=== PATIENT | male | born 1995 | race Caucasian/White ===

== ENCOUNTER 2016-08-02 14:35 | Emergency (ER) | payer BC ==
[2016-08-02 15:31] VITALS: BP 106/53
[2016-08-02] MEDS ORDERED: Ibuprofen TAB* 600 MG PO ONE (15:52)
--- NOTE | 2016-08-02 15:53 | UC ---
UC General HPI - HPI Summary HPI Summary: fever sore throat, vomiting and headahce, tolerating fluids ok. for 2 days - History of Current Complaint Chief Complaint: UCGeneralIllness Stated Complaint: VOMITING/SORE THROAT/CHILLS/WEAKNESS Time Seen by Provider: 08/02/16 15:43 Hx Obtained From: Patient Onset/Duration: Sudden Onset, Lasting Days Timing: Constant Onset Severity: Moderate Current Severity: Severe Pain Intensity: 8 Associated Signs & Symptoms: Positive: Dizziness, Fever, Headache, Nausea, Vomiting - Allergy/Home Medications Allergies/Adverse Reactions: Allergies Allergy/AdvReac Type Severity Reaction Status Date / Time No Known Allergies Allergy Verified 08/02/16 15:31 PMH/Surg Hx/FS Hx/Imm Hx Previously Healthy: Yes - Surgical History Surgical History: None - Family History Known Family History: Positive: Other - skin CA - Social History Alcohol Use: Occasionally Substance Use Type: None Smoking Status (MU): Never Smoked Tobacco Review of Systems Constitutional: Fever, Chills, Fatigue Skin: Negative Eyes: Negative ENT: Sore Throat, Nasal Discharge Respiratory: Shortness Of Breath, Cough Cardiovascular: Negative Gastrointestinal: Vomiting Genitourinary: Negative Motor: Negative Neurovascular: Negative Musculoskeletal: Negative Neurological: Headache Psychological: Negative All Other Systems Reviewed And Are Negative: Yes Physical Exam Triage Information Reviewed: Yes Appearance: Well-Nourished, Ill-Appearing, Pain Distress Vital Signs: Initial Vital Signs Temp 102.6 F 08/02/16 15:27 Pulse 95 08/02/16 15:27 Resp 16 08/02/16 15:27 BP 106/53 08/02/16 15:27 Pulse Ox 97 08/02/16 15:27 Vital Signs Reviewed: Yes Eye Exam: Normal ENT Exam: Normal ENT: Positive: Pharyngeal erythema, Nasal congestion, Nasal drainage, TMs normal , Tonsillar swelling Dental Exam: Normal Neck exam: Normal Neck: Positive: Supple, Nontender, No Lymphadenopathy Respiratory Exam: Normal Respiratory: Positive: Chest non-tender, Lungs clear, Normal breath sounds Cardiovascular Exam: Normal Cardiovascular: Positive: RRR, No Murmur, Pulses Normal Abdominal Exam: Normal Abdomen Description: Positive: Nontender, No Organomegaly, Soft Bowel Sounds: Positive: Present Musculoskeletal Exam: Normal Musculoskeletal: Positive: Strength Intact, ROM Intact, No Edema Neurological Exam: Normal Psychological Exam: Normal Skin: Positive: Other - face is flushed, skin is clammy Course/Dx - Course Course Of Treatment: hx obtained, exam performed, med given ,flu swab obtained, positive. tamiflu prescribed. - Differential Dx - Multi-Symptom Provider Diagnoses: Influenza A. fever. vomiting Discharge - Discharge Plan Condition: Stable Disposition: HOME Patient Education Materials: Influenza (ED) Forms: *School Release Additional Instructions: Take the medication as prescribed. Continue to use ibuprofen and tylenol for pain and fever. DO not return to class while you have a fever or are vomiting. Follow up with any increase in symptoms
== END 2016-08-02 16:21 | disposition home or self-care (01) ==
LOC: UCCORT 14:35
DX: J09.X2 Influenza due to identified novel influenza A virus with other respiratory manifestations (principal); R50.9 Fever, unspecified; R11.10 Vomiting, unspecified
CPT/HCPCS: 87502; 99212; A9270-GY; G0463

== ENCOUNTER 2018-02-27 09:32 | Emergency (ER) | payer BC ==
[2018-02-27 09:43] VITALS: BP 112/64
[2018-02-27] MEDS ORDERED: Dexamethasone IV* 4 MG/ML 1 ML (4 MG) IM ONE (09:52)
--- NOTE | 2018-02-27 09:52 | UC ---
Skin Complaint HPI - HPI Summary HPI Summary: This patient is a 22 year old male [place] [facility] chief complaint of rash since yesterday. The rash is located on his arms and legs. Patient denies the rash occurring on his trunk. The pain is described as a hive-like rash, lot of itching and burning. The pain is rated 0/10 in severity. Symptoms aggravated by nothing. The patient treated the sx with Benadryl yesterday to mild relief. Patient states that that this rash is not unfamiliar to him and gets this rash nearly annually. He states that he normally get a prednisone shot for it and states that it is probably poison sumac. Patient denies fever, chills. Denies any new soap, detergent , cosmetics, food or a possible exposure. Denies any fever, chills, cough chest pain or shortness of breath . No diaphoresis. Denies any abdominal pain , nausea or vomiting , diarrhea or constipation. - History of Current Complaint Chief Complaint: UCSkin Time Seen by Provider: 02/27/18 09:34 Stated Complaint: ALLERGIC REACTION Hx Obtained From: Patient Onset/Duration: Sudden Onset, Lasting Days, Still Present Timing: Constant Onset Severity: Mild Current Severity: Mild Pain Intensity: 0 Pain Scale Used: 0-10 Numeric Location: Other - all 4 extremities Character: Hives Aggravating Factor(s): Nothing Alleviating Factor(s): Other - benadryl Associated Signs & Symptoms: Positive: Negative - fever, chills - Allergy/Home Medications Allergies/Adverse Reactions: Allergies Allergy/AdvReac Type Severity Reaction Status Date / Time No Known Allergies Allergy Verified 02/27/18 09:43 Home Medications: Home Medications diPHENhydraMINE PO* [Benadryl PO 25 MG TAB*] 25 mg PO Q6H PRN 02/27/18 [History Confirmed 02/27/18] Review of Systems Constitutional: Negative - Fever, Chills Skin: Rash Eyes: Negative ENT: Negative Respiratory: Negative Cardiovascular: Negative Gastrointestinal: Negative Genitourinary: Negative Motor: Negative Neurovascular: Negative Musculoskeletal: Negative Neurological: Negative Is Patient Immunocompromised?: No All Other Systems Reviewed And Are Negative: Yes PMH/Surg Hx/FS Hx/Imm Hx Previously Healthy: Yes Other Endocrine History: negative Other Cardiovascular History: Negative: CHF Other Respiratory History: Negative: COPD Other GI/ History: negative Other Neurological History: negative Other Psychological History: negative Other Cancer History: negative - Surgical History Surgical History: None - Family History Known Family History: Positive: Other - skin CA - Social History Occupation: Employed Full-time Alcohol Use: Occasionally Substance Use Type: None Smoking Status (MU): Never Smoked Tobacco Physical Exam - Summary Physical Exam Summary: Appearance: Well-Appearing, No Pain Distress, Well-Nourished Eyes: conjunctiva clear, no discharge ENT: Hearing grossly normal, no muffled/hoarse voice. Neck: Normal, Supple Respiratory/Lung Sounds: Lungs clear, Normal breath sounds, No respiratory distress, No accessory muscle use Cardiovascular: RRR, No murmur Abdomen: Nontender, Soft, no guarding, not distended Bowel Sounds: Present Musculoskeletal: Normal Neurological: Alert, muscle tone normal Psychiatric:Normal, age appropriate behavior Skin: Blanching macular papular rash noted on the elbow and forearm of dorsal aspect of bilateral upper extremity . Bilateral hand on the dorsal aspect has similar lesions. Also on knee and hernández of lower extremities bilaterally. There is no drainage or exudates noted. Triage Information Reviewed: Yes Vital Signs: Initial Vital Signs Temp 98.0 F 02/27/18 09:39 Pulse 60 02/27/18 09:39 Resp 16 02/27/18 09:39 BP 112/64 02/27/18 09:39 Pulse Ox 100 02/27/18 09:39 Course/Dx - Course Course Of Treatment: This patient is a 22 year old male presenting [place] [facility] chief complaint of rash since yesterday. The rash is located on his arms and legs. In the ED course the patient was given Decadron IM. Patient was diagnosed with hives/ uricaria. Patient will be discharged with prescription for Benadryl, Prednisone, and Zantac and advised to follow up with his PCP in 3 days. The patient is agreeable with this plan. - Diagnoses Provider Diagnoses: Allergic reaction. Hives. Urticaria Discharge - Sign-Out/Discharge Documenting (check all that apply): Patient Departure All imaging exams completed and their final reports reviewed: No Studies - Discharge Plan Condition: Stable Disposition: HOME Prescriptions: diPHENhydraMINE PO* [Benadryl PO 50 MG CAP*] 50 mg PO TID PRN 5 Days #15 cap PRN Reason: Itching predniSONE [Prednisone 20 MG TAB] 20 mg PO DAILY 5 Days #15 tablet Ranitidine TAB (NF) [Zantac TAB (NF)] 150 mg PO BID 10 Days #20 tab Patient Education Materials: Urticaria (ED), Acute Rash (ED) Referrals: No Primary Care Phys,NOPCP [Primary Care Provider] - 3 Days Additional Instructions: Please start taking the medication as prescribed to the pharmacy . Follow up with your primary care doctor in 2- 3 days. Return to Urgent care / ER if symptoms get worse. - Billing Disposition and Condition Condition: STABLE Disposition: Home - Attestation Statements Document Initiated by Scribe: Yes Documenting Scribe: Jose Muller Provider For Whom Eulalioibe is Documenting (Include Credential): Brayan Griffin MD Scribe Attestation: Jose Torres scribed for Brayan Griffin MD on 02/27/18 at 1030. Scribe Documentation Reviewed: Yes Provider Attestation: The documentation as recorded by the Jose richards accurately reflects the service I personally performed and the decisions made by Brayan gutierrez MD
== END 2018-02-27 10:20 | disposition home or self-care (01) ==
LOC: UCEAST 09:32
DX: T78.40XA Allergy, unspecified, initial encounter (principal); X58.XXXA Exposure to other specified factors, initial encounter; L50.0 Allergic urticaria
CPT/HCPCS: 96372; 99212; G0463; J1100